=== PATIENT | male | born 1970 | race Caucasian/White ===

== ENCOUNTER 2025-03-05 06:48 | Outpatient (RCR) | payer OTHER, SELFPAY | END 2025-03-05 23:59 | disposition home or self-care (01) | LOC: ROT 06:48 | DX: M77.12 Lateral epicondylitis, left elbow (principal); Z73.6 Limitation of activities due to disability; M25.522 Pain in left elbow; X58.XXXD Exposure to other specified factors, subsequent encounter; Y93.89 Activity, other specified; Y92.89 Other specified places as the place of occurrence of the external cause; Y99.0 Civilian activity done for income or pay | CPT/HCPCS: 97140; 97166; 97535 ==